=== PATIENT | female | born 1965 | race Caucasian/White ===

== ENCOUNTER 2018-10-08 02:19 | Emergency (ER) | payer BC ==
[~2018-10-08] VITALS: Ht 170.2 cm; Wt 84.4 kg
--- NOTE | 2018-10-08 02:49 | NUR ---
PT. TO ED [facility] WITH C/O FELLING LIKE HER HEART IS RACING. STATES THIS WOKE HER FROM SLEEP AND HAS NOT STOPPED. EKG WAS DONE IN TRIAGE. PT. IN NSR ON MONITOR AT RATE OF 74. PT. STATES SHE HAD CP OFF AND ON X 4 DAYS BUT DENIES PAIN AT THIS TIME. ALSO STATES "I THINK MY THYROID IS OFF EVER SINCE MENOPAUSE" AND "I ALSO HAVE PANIC ATTACKS SO I TAKE LEXAPRO FOR THAT, I JUST WANT TO BE SAFE AND MAKE SURE EVERYTING IS OK". DR. CRUZ WAS IN TO EVAL PT. AND DISCUSS POC. PT. HAS ALL MONITORS IN PLACE. CALL LIGHT IN REACH. ALL SAFETY MEASUERS OBSERVED.
[2018-10-08 03:02] LABS: BASOPHILS # (AUTO) 0.06 x10^3/uL (0-0.1); BASOPHILS % (AUTO) 1 % (0-1); EOSINOPHILS # (AUTO) 0.36 x10^3/uL (0-0.4); EOSINOPHILS % (AUTO) 6 % (1-7); LYMPHOCYTES # (AUTO) 2.21 x10^3/uL (1-3.4); LYMPHOCYTES % (AUTO) 36 % (22-44); MD NO; MEAN CORPUSCULAR HEMOGLOBIN 32.2 pg (27.0-34.8); MEAN CORPUSCULAR VOLUME 92.1 fL (80-100); MEAN PLATELET VOLUME 8.7 fL (7.4-10.4); MONOCYTES % (AUTO) 8 % (2-9); NEUTROPHILS % (AUTO) 49 % (42-75); PLATELET COUNT 207 x10^3/uL (130-400); RED BLOOD COUNT 4.23 x10^6/uL (3.82-5.3); RED CELL DISTRIBUTION WIDTH 13.4 % (9.6-15.2)
[2018-10-08 03:15] LABS: ALBUMIN 3.5 g/dL (3.4-5.0); ANION GAP 6 mmol/L (5-15); CALCIUM 9.1 mg/dL (8.5-10.1); CHLORIDE 113 mmol/L (98-107); CREATININE 0.78 mg/dL (0.55-1.02); T4 (THYROXINE) 9.4 mcg/dL (4.8-13.9)
[2018-10-08 03:19] LABS: TROPONIN I < 0.015 ng/mL (0.000-0.045)
--- NOTE | 2018-10-08 03:33 | NUR ---
CHART UP FOR RECHECK BY YULISSA.
[2018-10-08 04:02] VITALS: BP 107/60
== END 2018-10-08 04:04 | disposition home or self-care (01) ==
LOC: ED 03:23
DX: R00.2 Palpitations (principal); R07.2 Precordial pain; E03.9 Hypothyroidism, unspecified
CPT/HCPCS: 36415; 71045; 80048; 82040; 83735; 84436; 84443; 84484; 85025; 93005; 99284

== ENCOUNTER 2018-10-16 14:18 | Emergency (ER) | payer BC ==
[~2018-10-16] VITALS: Ht 170.2 cm; Wt 80.8 kg
[2018-10-16 14:51] LABS: BASOPHILS # (AUTO) 0.04 x10^3/uL (0-0.1); BASOPHILS % (AUTO) 1 % (0-1); EOSINOPHILS # (AUTO) 0.19 x10^3/uL (0-0.4); EOSINOPHILS % (AUTO) 3 % (1-7); LYMPHOCYTES # (AUTO) 1.65 x10^3/uL (1-3.4); LYMPHOCYTES % (AUTO) 26 % (22-44); MD NO; MEAN CORPUSCULAR HEMOGLOBIN 32.3 pg (27.0-34.8); MEAN CORPUSCULAR HGB CONC 34.9 g/dL (32.4-35.8); MEAN CORPUSCULAR VOLUME 92.8 fL (80-100); MEAN PLATELET VOLUME 8.8 fL (7.4-10.4); MONOCYTES # (AUTO) 0.41 x10^3/uL (0.2-0.8); MONOCYTES % (AUTO) 6 % (2-9); NEUTROPHILS # (AUTO) 4.13 x10^3/uL (1.8-6.8); NEUTROPHILS % (AUTO) 64 % (42-75); PLATELET COUNT 276 x10^3/uL (130-400); RED BLOOD COUNT 4.63 x10^6/uL (3.82-5.3); RED CELL DISTRIBUTION WIDTH 13.6 % (9.6-15.2)
--- NOTE | 2018-10-16 14:52 | NUR ---
PT TO ROOM AT THIS TIME
[2018-10-16 15:03] LABS: ALANINE AMINOTRANSFERASE 27 U/L (12-78); ALBUMIN 4.2 g/dL (3.4-5.0); ANION GAP 7 mmol/L (5-15); CALCIUM 8.9 mg/dL (8.5-10.1); CHLORIDE 112 mmol/L (98-107); CREATININE 0.74 mg/dL (0.55-1.02)
[2018-10-16 15:13] LABS: ALKALINE PHOSPHATASE 67 U/L (45-117); BILIRUBIN,TOTAL 0.7 mg/dL (0.2-1.0); FREE T4 (FREE THYROXINE) 1.36 ng/dL (0.76-1.46); TOTAL PROTEIN 7.6 g/dL (6.4-8.2)
--- NOTE | 2018-10-16 15:18 | NUR ---
PT AMBULATORY WITH STEADY GAIT TO BATHROOM.
--- NOTE | 2018-10-16 15:19 | NUR ---
53 Y/O FEMALE PRESENTS TO ED WITH C/O HIGH BP. "TODAY MY BP WAS IN THE 150S. M7Y NORMAL IS IN THE 90S. LAST WEEK I WAS HERE FOR HEART PALPATATIONS." NO ACUTE DISTRESS NOTED. PT PLACED ON CONT PULSE OX,NIBP, REDYE HAND. FATHER BEDSIDE.
[2018-10-16 16:12] VITALS: BP 123/78
--- NOTE | 2018-10-16 16:12 | NUR ---
PT RESTING ON [id number]. NO ACUTE DISTRESS NOTED. NO NEEDS REQUESTED AT THIS TIME.
--- NOTE | 2018-10-16 16:30 | NUR ---
Patient/Caregiver given discharge instructions and they have confirmed that they understand the instructions. Patient ambulatory with steady gait. pt left with all personal belongings.
== END 2018-10-16 16:35 | disposition home or self-care (01) ==
LOC: ED 16:05
DX: I10 Essential (primary) hypertension (principal); E03.9 Hypothyroidism, unspecified
CPT/HCPCS: 36415; 80053; 84439; 84443; 85025; 93005; 99284

== ENCOUNTER → 2018-11-10 | Outpatient (CLI) | payer BC | END | disposition home or self-care (01) | LOC: RAD 12:14 | PROVIDERS: ATTEND Family Medicine | DX: S13.150A Subluxation of C4/C5 cervical vertebrae, initial encounter (principal); M47.812 Spondylosis without myelopathy or radiculopathy, cervical region; X58.XXXA Exposure to other specified factors, initial encounter; Y93.89 Activity, other specified; Y92.89 Other specified places as the place of occurrence of the external cause; Y99.8 Other external cause status | CPT/HCPCS: 72040 ==

== ENCOUNTER 2019-03-31 08:22 | Inpatient (IN) | payer BC ==
[~2019-03-31] VITALS: Ht 170.2 cm; Wt 86.9 kg
[~2019-03-31 08:22] MED LIST: BACITRACIN 50,000 UNIT ONE; BUPIVACAINE/PF 0.5% ONE; EPINEPHRINE 1 MG/ML, 1ML ONE; ESCI20TA10 PO; GABA300C10 PO; LEVO25TA4 PO; LORA-247 PO; MELO15TA24 PO; THROMBIN 5,000 UNIT VIAL TP ONE
[2019-03-31] MEDS ORDERED: ACETAMINOPHEN 500 MG TABLET PO ONE (09:00)
[2019-03-31] MEDS ORDERED: DIAZEPAM 5 MG TABLET PO ONE ×2 (09:00)
[2019-03-31 09:13] LABS: HCG UR SG 1.016 (1.003-1.030)
[2019-03-31] MEDS ORDERED: LACTATED RINGERS 1,000 ML IV SCH (10:00)
[2019-03-31] MEDS: GABAPENTIN 300 MG CAPSULE PO ONE ×2 (11:57→12:03)
[2019-03-31] MEDS ORDERED: MIDAZOLAM 1 MG/ML, 2ML ONE (13:33)
[2019-03-31] MEDS ORDERED: FENTANYL PF 250 MCG/5ML ONE (13:33)
[2019-03-31] MEDS ORDERED: PROPOFOL 50 ML ONE (14:28)
[2019-03-31] MEDS ORDERED: SCOPOLAMINE PATCH, 1.5MG PATCH.TD72 TD ONE (14:32)
[2019-03-31] MEDS ORDERED: OXYcodone 5 MG/5 ML ORAL.SOL UDC PO PRN (16:00)
[2019-03-31] MEDS ORDERED: ALBUTEROL SULFATE 2.5 MG/3 ML NPPB PRN (16:00)
[2019-03-31] MEDS ORDERED: DIAZEPAM 5 MG/ML, 2ML IVPush PRN (16:00)
[2019-03-31] MEDS ORDERED: ACETAMINOPHEN 325 MG TABLET PO PRN (16:00)
[2019-03-31] MEDS ORDERED: KETOROLAC 30 MG/1 ML IV PRN (16:00)
[2019-03-31] MEDS ORDERED: HYDROmorphone 2 MG/ML, 1ML IVPush PRN (16:00)
[2019-03-31] MEDS ORDERED: PROMETHAZINE 25 MG/ML, 1ML IV PRN (16:00)
[2019-03-31] MEDS ORDERED: LABETALOL 5 MG/ML SYR. (IV ONLY) IV PRN (16:00)
[2019-03-31] MEDS ORDERED: hydrALAzine 20 MG/ML, 1ML IV PRN (16:00)
[2019-03-31] MEDS ORDERED: MEPERIDINE/PF 25MG/0.5ML IVPush PRN (16:00)
[2019-03-31] MEDS ORDERED: PROPOFOL 10 MG/ML, 20ML ONE (16:29)
[2019-03-31] MEDS ORDERED: DEXAMETHASONE 4 MG/ML, 1ML ONE (16:29)
[2019-03-31] MEDS ORDERED: ROCURONIUM 10MG/ML,5ML ONE (16:29)
[2019-03-31] MEDS ORDERED: SUCCINYLCHOLINE 20 MG/ML, 10ML ONE (16:29)
[2019-03-31] MEDS ORDERED: CEFAZOLIN 1,000 MG ONE (16:29)
[2019-03-31] MEDS ORDERED: NEOSTIGMINE 1 MG/ML, 10ML ONE (16:29)
[2019-03-31] MEDS ORDERED: GLYCOPYRROLATE 0.2MG/1ML, 5ML ONE (16:29)
[2019-03-31] MEDS ORDERED: ONDANSETRON 2MG/ML, 2ML ONE (16:29)
[2019-03-31] MEDS ORDERED: OXYcodone 5 MG/5 ML ORAL.SOL UDC ONE (16:58)
[2019-03-31] MEDS ORDERED: HYDROmorphone 1 MG/ML, 1ML VIAL ONE (16:58)
[2019-03-31] MEDS ORDERED: FENTANYL PF 100 MCG/2ML ONE ×2 (16:58→17:18)
[2019-03-31] MEDS: FENTANYL PF 100 MCG/2ML IV PRN ×2 (17:02→17:13)
[2019-03-31] MEDS ORDERED: KETOROLAC 30 MG/1 ML ONE (17:18)
[2019-03-31 18:00] VITALS: BP 114/76
[2019-03-31] MEDS ORDERED: OXYcodone/APAP 5/325MG TABLET PO PRN (19:00)
[2019-03-31] MEDS ORDERED: HYDROcodone/APAP 10/325 MG TABLET PO PRN (19:00)
[2019-03-31] MEDS ORDERED: morphine SULFATE 10 MG/ML, 1ML IV PRN (19:00)
[2019-03-31] MEDS ORDERED: TIZANIDINE 2MG TABLET PO PRN (19:00)
[2019-03-31] MEDS ORDERED: DIPHENHYDRAMINE 25 MG CAPSULE PO PRN (19:00)
[2019-03-31] MEDS ORDERED: PROMETHAZINE 25 MG/ML, 1ML IM PRN (19:00)
[2019-03-31] MEDS ORDERED: CEFAZOLIN PMX 1GM/50ML 50 ML IVPB SCH (19:00)
[2019-03-31] MEDS ORDERED: CYCLOBENZAPRINE 10 MG TABLET PO PRN (19:00)
[2019-03-31] MEDS ORDERED: DIPHENHYDRAMINE 50 MG/ML, 1ML IVPush PRN (19:00)
[2019-03-31] MEDS ORDERED: ONDANSETRON 2MG/ML, 2ML IV PRN (19:00)
[2019-03-31] MEDS ORDERED: MAGNESIUM HYDROXIDE 8%, 30ML UDC PO PRN (19:00)
[2019-03-31] MEDS ORDERED: BISACODYL 10 MG SUPP PR PRN (19:00)
[2019-03-31 19:05] VITALS: BP 115/77
[2019-03-31] MEDS: GABAPENTIN 300 MG CAPSULE PO SCH (21:09)
[2019-03-31] MEDS: NS + 20MEQ KCL 1,000 ML IV SCH (21:09)
[2019-03-31 23:06] VITALS: BP 99/61
[2019-04-01] MEDS: CEFAZOLIN PMX 1GM/50ML 50 ML IVPB SCH ×2 (00:03→08:45)
[2019-04-01 03:39] VITALS: BP 144/77
[2019-04-01] MEDS ORDERED: LEVOTHYROXINE 25 MCG TABLET PO SCH (06:00)
[2019-04-01] MEDS: NS + 20MEQ KCL 1,000 ML IV SCH (07:00)
[2019-04-01 07:38] VITALS: BP 101/66
[2019-04-01] MEDS: GABAPENTIN 300 MG CAPSULE PO SCH (08:46)
[2019-04-01] MEDS ORDERED: LORATADINE 10 MG TABLET PO SCH (09:00)
[2019-04-01] MEDS ORDERED: SENNA/DOCUSATE TABLET PO SCH (09:00)
[2019-04-01] MEDS ORDERED: ESCITALOPRAM 10MG TABLET PO SCH (09:00)
[2019-04-01] MEDS ORDERED: OXYC1TAB7 PO (09:16)
[2019-04-01] MEDS ORDERED: TIZA2TAB2 PO (09:16)
[2019-04-01 10:59] VITALS: BP 108/73
== END 2019-04-01 11:45 | disposition home or self-care (01) | DRG 473 ==
LOC: ORIP 08:22 → 4NE 17:59 → DCLOUNGE 04-01 11:30
PROVIDERS: ADMIT Neurological Surgery; ATTEND Neurological Surgery
PROC: 0RB30ZZ Excision of Cervical Vertebral Disc, Open Approach (ICD-10-PCS; 2019-03-31)
PROC: 0RG20A0 Fusion of 2 or more Cervical Vertebral Joints with Interbody Fusion Device, Anterior Approach, Anterior Column, Open Approach (ICD-10-PCS; principal; 2019-03-31 11:30)
DX: M47.892 Other spondylosis, cervical region (principal); G89.29 Other chronic pain; J45.909 Unspecified asthma, uncomplicated; M19.90 Unspecified osteoarthritis, unspecified site; F41.9 Anxiety disorder, unspecified; M54.12 Radiculopathy, cervical region; F32.9 Major depressive disorder, single episode, unspecified; Z82.61 Family history of arthritis; Z83.3 Family history of diabetes mellitus; Z82.49 Family history of ischemic heart disease and other diseases of the circulatory system
CPT/HCPCS: 72040; S0020; 81025; 95938; 95941; C1713; G0378; J0171; J0690; J1100; J1885; J2250; J2405; J2704; J2710; J3010; J3480; J0330; J7120

== ENCOUNTER 2019-04-30 13:50 | Outpatient (CLI) | payer BC ==
[~2019-04-30 13:50] MED LIST changes: -BACITRACIN 50,000 UNIT ONE; -BUPIVACAINE/PF 0.5% ONE; -EPINEPHRINE 1 MG/ML, 1ML ONE; +OXYC1TAB7 PO; -THROMBIN 5,000 UNIT VIAL TP ONE; +TIZA2TAB2 PO
== END 2019-04-30 23:59 | disposition home or self-care (01) ==
LOC: RAD 13:50
PROVIDERS: ATTEND Registered Nurse Registered Nurse First Assistant
DX: M50.30 Other cervical disc degeneration, unspecified cervical region (principal)
CPT/HCPCS: 72040

== ENCOUNTER → 2019-08-03 | Outpatient (CLI) | payer BC | END | disposition home or self-care (01) | LOC: RAD 15:51 | PROVIDERS: ATTEND Neurological Surgery | DX: M50.33 Other cervical disc degeneration, cervicothoracic region (principal) | CPT/HCPCS: 72050 ==